=== PATIENT | male | born 1960 | race American Indian/Alaskan Native ===

== ENCOUNTER 2019-11-13 16:32 | Observation (INO) | payer OTHER ==
[2019-11-13] MEDS ORDERED: Sodium Chloride 0.9% 2.5 ML Syringe FLUSH PRN (16:38)
[2019-11-13] MEDS ORDERED: Aspirin 81 MG Tab.Chew PO ONE (16:38)
[2019-11-13] MEDS ORDERED: Sodium Chloride 0.9% 10 ML Syringe FLUSH PRN (16:38)
[2019-11-13] MEDS ORDERED: Sodium Chloride 0.9% 1,000 ML IV ONE (16:39)
[2019-11-13] MEDS ORDERED: Nitroglycerin 2% Oint 1 GM UD Packet TOP ONE (16:39)
--- NOTE | 2019-11-13 16:50 | EDM.PDOC ---
ED HPI GENERAL MEDICAL PROBLEM - General Chief Complaint: Chest Pain Stated Complaint: CHEST PAIN Time Seen by Provider: 11/13/19 16:37 Source of Information: Reports: Patient History Limitations: Reports: No Limitations - History of Present Illness INITIAL COMMENTS - FREE TEXT/NARRATIVE: HISTORY AND PHYSICAL: History of present illness: Patient is a 59-year-old male who presents to the emergency room with complaints of midsternal chest pain x 1 week. Over the past week he has had intermittent chest pain that has been brought on by physical activity. Initially the pain was dull but has progressively become more intense. Last night he was having intercourse when the pain became so severe he had to stop. "It woke me up a few times in the night" but was easily able to get back to sleep. He woke up this morning and started to do daily chores when the chest pain returned. He decided to come for evaluation. He has a history of hypertension and does take medication for this (has already taken today's doses) . Otherwise states he is in good health and has not had any cardiac related problems. He is a daily smoker, long-term. 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 Patient denies any fever, chills, headache, change in vision, syncope or near syncope. Denies any back pain, shortness of breath or cough. Denies any abdominal pain, nausea, vomiting, diarrhea, constipation or dysuria. Patient has been eating and drinking appropriately. Denies any significant family history of heart disease. No recent travel or exposure to anyone who's been ill. Review of systems: As per history of present illness and below otherwise all systems reviewed and negative. Past medical history: As per history of present illness and as reviewed below otherwise noncontributory. Surgical history: As per history of present illness and as reviewed below otherwise noncontributory. Social history: See social history for further information Family history: As per history of present illness and as reviewed below otherwise noncontributory. Physical exam: General: Well-developed and well-nourished 59-year-old male. Alert and oriented. Nontoxic-appearing and in no acute distress. HEENT: Atraumatic, normocephalic, pupils equal and reactive bilaterally, negative for conjunctival pallor or scleral icterus, mucous membranes moist, TMs normal bilaterally, throat clear, neck supple, nontender, trachea midline. No drooling or trismus noted. No meningeal signs. No hot potato voice noted. Lungs: Clear to auscultation, breath sounds equal bilaterally, chest nontender. Heart: S1S2, regular rate and rhythm without overt murmur Abdomen: Soft, nondistended, nontender. Negative for masses or hepatosplenomegaly. Negative for costovertebral tenderness. Skin: Intact, warm, dry. No lesions or rashes noted. Extremities: Atraumatic, moves all extremities per self without difficulty or deficits, negative for cords or calf pain. Neurovascular unremarkable. Neuro: Awake, alert, oriented. Cranial nerves II through XII unremarkable. Cerebellum unremarkable. Motor and sensory unremarkable throughout. Exam nonfocal. Notes: Lab work is unremarkable. Chest x-ray shows no acute findings. Vital signs have improved since being here. He states he has been pain-free. Would like to keep the patient for observation with telemetry. Patient is agreeable. Dr. Sánchez was consulted on this case and agreeable to keeping the patient for further care and management. Diagnostics: CBC, CMP, Troponin, EKG, CXR Therapeutics: Aspirin, Nitro, NS at 125 mls/hr Impression: Chest pain r/o [place] Plan: Observation admission to Med/Surg Definitive disposition and diagnosis as appropriate pending reevaluation and review of above. - Related Data Allergies Allergy/AdvReac Type Severity Reaction Status Date / Time No Known Allergies Allergy Verified 11/13/19 16:35 Home Meds: Home Meds amLODIPine [Norvasc] 11/13/19 [History] atorvaSTATin [Lipitor] 11/13/19 [History] ED ROS GENERAL - Review of Systems Review Of Systems: Comprehensive ROS is negative, except as noted in HPI. ED EXAM, GENERAL - Physical Exam Exam: See Below (See dictation) Course - Vital Signs Last Recorded V/S: Last Vital Signs Temp 98.2 F 11/13/19 16:35 Pulse 87 11/13/19 17:32 Resp 16 11/13/19 17:32 BP 150/72 H 11/13/19 17:32 Pulse Ox 94 L 11/13/19 17:32 - Orders/Labs/Meds Orders: Active Orders 24 hr Category Date Time Status Admission Status [Patient Status] [ADT] Stat ADT 11/13/19 17:33 Active EKG Documentation Completion [RC] STAT Care 11/13/19 16:38 Active Sodium Chloride 0.9% [Normal Saline] 1,000 ml Med 11/13/19 16:39 Active IV STAT Sodium Chloride 0.9% [Saline Flush] Med 11/13/19 16:38 Active 10 ml FLUSH ASDIRECTED PRN Sodium Chloride 0.9% [Saline Flush] Med 11/13/19 16:38 Active 2.5 ml FLUSH ASDIRECTED PRN Saline Lock Insert [OM.PC] Stat Oth 11/13/19 16:38 Ordered Medication Orders Sodium Chloride (Normal Saline) 1,000 mls @ 125 mls/hr IV STAT ONE Stop: 11/14/19 00:38 Last Admin: 11/13/19 16:45 Dose: 125 mls/hr Sodium Chloride (Saline Flush) 10 ml FLUSH ASDIRECTED PRN PRN Reason: Keep Vein Open Last Admin: 11/13/19 16:45 Dose: 10 ml Sodium Chloride (Saline Flush) 2.5 ml FLUSH ASDIRECTED PRN PRN Reason: Keep Vein Open Last Admin: 11/13/19 16:45 Dose: 2.5 ml Labs: Laboratory Tests 11/13/19 11/13/19 Range/Units 16:35 16:35 WBC 11.03 H (4.0-11.0) K/uL RBC 5.90 (4.50-5.90) M/uL Hgb 16.8 (13.0-17.0) g/dL Hct 49.8 (38.0-50.0) % MCV 84.4 (80.0-98.0) fL MCH 28.5 (27.0-32.0) pg MCHC 33.7 (31.0-37.0) g/dL RDW Std Deviation 38.9 (28.0-62.0) fl RDW Coeff of Alin 13 (11.0-15.0) % Plt Count 284 (150-400) K/uL MPV 9.50 (7.40-12.00) fL Neut % (Auto) 49.1 (48.0-80.0) % Lymph % (Auto) 40.9 H (16.0-40.0) % [place] % (Auto) 7.6 (0.0-15.0) % Eos % (Auto) 2.2 (0.0-7.0) % Baso % (Auto) 0.2 (0.0-1.5) % Neut # (Auto) 5.4 (1.4-5.7) K/uL Lymph # (Auto) 4.5 H (0.6-2.4) K/uL [place] # (Auto) 0.8 (0.0-0.8) K/uL Eos # (Auto) 0.2 (0.0-0.7) K/uL Baso # (Auto) 0.0 (0.0-0.1) K/uL Nucleated RBC % 0.0 /100WBC Nucleated RBCs # 0 K/uL Sodium 142 (136-148) mmol/L Potassium 3.5 (3.5-5.1) mmol/L Chloride 104 (98-107) mmol/L Carbon Dioxide 28.4 (21.0-32.0) mmol/L BUN 17 (7.0-18.0) mg/dL Creatinine 1.1 (0.8-1.3) mg/dL Est Cr Clr Drug Dosing 64.44 mL/min Estimated GFR (MDRD) > 60.0 ml/min Glucose 198 H (74-106) mg/dL Calcium 9.4 (8.5-10.1) mg/dL Total Bilirubin 0.3 (0.2-1.0) mg/dL AST 34 (15-37) IU/L ALT 88 H (14-63) IU/L Alkaline Phosphatase 105 (46-116) U/L Troponin I < 0.050 (0.000-0.056) ng/mL Total Protein 7.3 (6.4-8.2) g/dL Albumin 4.0 (3.4-5.0) g/dL Globulin 3.3 (2.6-4.0) g/dL Albumin/Globulin Ratio 1.2 (0.9-1.6) Meds: Medications Generic Name Dose Route Start Last Admin Trade Name Freq PRN Reason Stop Dose Admin Sodium Chloride 1,000 mls @ 125 mls/hr 11/13/19 16:39 11/13/19 16:45 Normal Saline IV 11/14/19 00:38 125 mls/hr STAT ONE Administration Sodium Chloride 10 ml 11/13/19 16:38 11/13/19 16:45 Saline Flush FLUSH 10 ml ASDIRECTED PRN Administration Keep Vein Open Sodium Chloride 2.5 ml 11/13/19 16:38 11/13/19 16:45 Saline Flush FLUSH 2.5 ml ASDIRECTED PRN Administration Keep Vein Open Discontinued Medications Generic Name Dose Route Start Last Admin Trade Name Freq PRN Reason Stop Dose Admin Aspirin 324 mg 11/13/19 16:38 11/13/19 16:44 Aspirin PO 11/13/19 16:39 324 mg ONETIME ONE Administration Nitroglycerin 1 gm 11/13/19 16:39 11/13/19 16:44 Nitro-Bid 2% TOP 11/13/19 16:40 1 gm ONETIME ONE Administration Departure - Departure Time of Disposition: 17:37 Disposition: Refer to Observation Clinical Impression: Chest pain, rule out acute myocardial infarction Forms: ED Department Discharge Sepsis Event Note - Evaluation Sepsis Screening Result: No Definite Risk - Focused Exam Vital Signs: Vital Signs Temp Pulse Resp BP Pulse Ox 11/13/19 17:32 87 16 150/72 H 94 L 11/13/19 16:46 98 20 163/73 H 96 11/13/19 16:35 98.2 F 110 H 18 188/80 H 98 Date Exam was Performed: 11/13/19 Time Exam was Performed: 17:35 - My Orders Last 24 Hours: My Active Orders 11/13/19 16:38 EKG Documentation Completion [RC] STAT Sodium Chloride 0.9% [Saline Flush] 10 ml FLUSH ASDIRECTED PRN Sodium Chloride 0.9% [Saline Flush] 2.5 ml FLUSH ASDIRECTED PRN Saline Lock Insert [OM.PC] Stat 11/13/19 16:39 Sodium Chloride 0.9% [Normal Saline] 1,000 ml IV STAT 11/13/19 17:33 Admission Status [Patient Status] [ADT] Stat - Assessment/Plan Last 24 Hours: My Active Orders 11/13/19 16:38 EKG Documentation Completion [RC] STAT Sodium Chloride 0.9% [Saline Flush] 10 ml FLUSH ASDIRECTED PRN Sodium Chloride 0.9% [Saline Flush] 2.5 ml FLUSH ASDIRECTED PRN Saline Lock Insert [OM.PC] Stat 11/13/19 16:39 Sodium Chloride 0.9% [Normal Saline] 1,000 ml IV STAT 11/13/19 17:33 Admission Status [Patient Status] [ADT] Stat
--- NOTE | 2019-11-13 17:01 | CR ---
Chest: Portable view of the chest was obtained. Comparison: No previous chest imaging. Heart size is normal. Mild tortuosity of the thoracic aorta is seen. Degenerative endplate spurring is scattered within the visualized spine. Lungs show no acute parenchymal change. Impression: 1. Findings as noted above. 2. Nothing acute is appreciated on portable chest x-ray. Diagnostic code #2 Study was dictated in MDT
[2019-11-13 17:26] LABS: BLOOD UREA NITROGEN,BUN 17 mg/dL (7.0-18.0); CARBON DIOXIDE,CO2 28.4 mmol/L (21.0-32.0); CHLORIDE,CL 104 mmol/L (98-107); GLUCOSE RANDOM 198 mg/dL (74-106); POTASSIUM,K 3.5 mmol/L (3.5-5.1); SODIUM,NA 142 mmol/L (136-148)
[2019-11-13] MEDS ORDERED: Acetaminophen 325 MG Tab PO PRN (18:52)
[2019-11-13] MEDS ORDERED: Calcium Carbonate 500 MG Tab.Chew PO PRN (18:52)
[2019-11-13] MEDS ORDERED: Pantoprazole 40 MG in Sodium Chloride 0.9% 10 ML IV ONE (20:00)
[2019-11-13] MEDS ORDERED: hydrOXYzine HCl 25 MG Tab PO SCH (21:30)
--- NOTE | 2019-11-13 21:39 | PCM.HP.2 ---
H&P History of Present Illness - General Date of Service: 11/13/19 Admit Problem/Dx: Admission Diagnosis/Problem Admission Diagnosis/Problem Chest pain, rule out acute myocardial infarction - History of Present Illness Initial Comments - Free Text/Narative: 59 yo male with pmh of hypertension and hyperlipidemia who presents with one week history of chest pain. He describes the pain as an intense burn on the left side of his chest that is nonradiating. He thought it could be heart burn so he has been taking tums. The pain is made worse with exertions such as shoveling snow and sex but is relieved with rest. The pain last for several minutes at a time. In the ED he was noted to have a BP of 188/80 and HR of 110. EKG and intial troponin showed no signs of ischemia he was given nitro paste and ASA which improved his chest pain. Left Chest Pain Score (Numeric/FACES): 1 - Related Data Allergies/Adverse Reactions: Allergies Allergy/AdvReac Type Severity Reaction Status Date / Time No Known Allergies Allergy Verified 11/13/19 18:39 Home Medications: Home Meds amLODIPine [Norvasc] 10 mg PO BEDTIME 11/13/19 [History] atorvaSTATin [Lipitor] 40 mg PO BEDTIME 11/13/19 [History] hydrOXYzine HCL [hydrOXYzine] 50 mg PO BEDTIME 11/13/19 [History] Past Medical History Cardiovascular History: Reports: High Cholesterol, Hypertension Neurological History: Reports: None - Infectious Disease History Infectious Disease History: Reports: Chicken Pox - Past Surgical History Other HEENT Surgeries/Procedures: facial surgery GI Surgical History: Reports: Colonoscopy Other Musculoskeletal Surgeries/Procedures:: back surgery Social & Family History - Family History Family Medical History: Noncontributory - Tobacco Use Smoking Status *Q: Current Every Day Smoker Years of Tobacco use: 2 Packs/Tins Daily: 0.5 - Caffeine Use Caffeine Use: Reports: Coffee, Energy Drinks - Alcohol Use Days Per Week of Alcohol Use: 3 Number of Drinks Per Day: 3 Total Drinks Per Week: 9 - Recreational Drug Use Recreational Drug Use: Yes Drug Use in Last 12 Months: Yes Recreational Drug Type: Reports: Methamphetamine Recreational Drug Use Frequency: Not Used In Over 5 Months H&P Review of Systems - Review of Systems: Review Of Systems: Comprehensive ROS is negative, except as noted in HPI. Exam - Exam Exam: See Below - Vital Signs Vital Signs: Last Vital Signs Temp 36.4 C 11/13/19 19:44 Pulse 87 11/13/19 19:44 Resp 14 11/13/19 19:44 BP 124/73 11/13/19 19:44 Pulse Ox 96 11/13/19 19:44 Weight: 78.925 kg - Exam General: Alert, Oriented HEENT: Mucosa Moist & [place] Neck: Supple Lungs: Clear to Auscultation, Normal Respiratory Effort Cardiovascular: Regular Rate, Regular Rhythm GI/Abdominal Exam: Normal Bowel Sounds, Soft, Non-Tender, No Distention Extremities: Non-Tender, No Pedal Edema Skin: Warm, Dry, Intact - Patient Data Lab Results Last 24 hrs: Laboratory Results - last 24 hr 11/13/19 11/13/19 Range/Units 16:35 16:35 WBC 11.03 H (4.0-11.0) K/uL RBC 5.90 (4.50-5.90) M/uL Hgb 16.8 (13.0-17.0) g/dL Hct 49.8 (38.0-50.0) % MCV 84.4 (80.0-98.0) fL MCH 28.5 (27.0-32.0) pg MCHC 33.7 (31.0-37.0) g/dL RDW Std Deviation 38.9 (28.0-62.0) fl RDW Coeff of Alin 13 (11.0-15.0) % Plt Count 284 (150-400) K/uL MPV 9.50 (7.40-12.00) fL Neut % (Auto) 49.1 (48.0-80.0) % Lymph % (Auto) 40.9 H (16.0-40.0) % [place] % (Auto) 7.6 (0.0-15.0) % Eos % (Auto) 2.2 (0.0-7.0) % Baso % (Auto) 0.2 (0.0-1.5) % Neut # (Auto) 5.4 (1.4-5.7) K/uL Lymph # (Auto) 4.5 H (0.6-2.4) K/uL [place] # (Auto) 0.8 (0.0-0.8) K/uL Eos # (Auto) 0.2 (0.0-0.7) K/uL Baso # (Auto) 0.0 (0.0-0.1) K/uL Nucleated RBC % 0.0 /100WBC Nucleated RBCs # 0 K/uL Sodium 142 (136-148) mmol/L Potassium 3.5 (3.5-5.1) mmol/L Chloride 104 (98-107) mmol/L Carbon Dioxide 28.4 (21.0-32.0) mmol/L BUN 17 (7.0-18.0) mg/dL Creatinine 1.1 (0.8-1.3) mg/dL Est Cr Clr Drug Dosing 64.44 mL/min Estimated GFR (MDRD) > 60.0 ml/min Glucose 198 H (74-106) mg/dL Calcium 9.4 (8.5-10.1) mg/dL Total Bilirubin 0.3 (0.2-1.0) mg/dL AST 34 (15-37) IU/L ALT 88 H (14-63) IU/L Alkaline Phosphatase 105 (46-116) U/L Troponin I < 0.050 (0.000-0.056) ng/mL Total Protein 7.3 (6.4-8.2) g/dL Albumin 4.0 (3.4-5.0) g/dL Globulin 3.3 (2.6-4.0) g/dL Albumin/Globulin Ratio 1.2 (0.9-1.6) Result Diagrams: 11/13/19 16:35 11/13/19 16:35 Sepsis Event Note - Evaluation Sepsis Screening Result: No Definite Risk - Focused Exam Vital Signs: Vital Signs Temp Pulse Resp BP Pulse Ox 11/13/19 19:44 36.4 C 87 14 124/73 96 11/13/19 18:30 36.6 C 82 18 166/82 H 96 11/13/19 18:25 90 16 114/90 100 11/13/19 17:32 87 16 150/72 H 94 L 11/13/19 16:46 98 20 163/73 H 96 11/13/19 16:35 36.8 C 110 H 18 188/80 H 98 Date Exam was Performed: 11/14/19 Time Exam was Performed: 11:28 Problem List Initiated/Reviewed/Updated: Yes Orders Last 24hrs: Active Orders 24 hr Category Date Time Status Admission Status [Patient Status] [ADT] Stat ADT 11/13/19 17:33 Active Accu Check [Blood Glucose Check, Bedside] [] TIDAC Care 11/13/19 21:18 Ordered EKG Documentation Completion [] STAT Care 11/13/19 16:38 Active Telemetry Monitoring [Cardiac Monitoring] [] Q8H Care 11/13/19 17:43 Active Regular Diet [DIET] Diet 11/13/19 Dinner Active GLYCOSYLATED HEMOGLOBIN,HGBA1C [CHEM] Routine Lab 11/13/19 22:30 Ordered TROPONIN I [CHEM] Q6H Lab 11/13/19 22:35 Ordered TROPONIN I [CHEM] Q6H Lab 11/14/19 04:35 Ordered Acetaminophen [Tylenol] Med 11/13/19 18:52 Active 650 mg PO Q6H PRN Calcium Carbonate [Tums] Med 11/13/19 18:52 Active 500 mg PO TID PRN Sodium Chloride 0.9% [Saline Flush] Med 11/13/19 16:38 Active 10 ml FLUSH ASDIRECTED PRN Sodium Chloride 0.9% [Saline Flush] Med 11/13/19 16:38 Active 2.5 ml FLUSH ASDIRECTED PRN amLODIPine [Norvasc] Med 11/14/19 09:00 Ordered 10 mg PO DAILY atorvaSTATin [Lipitor] Med 11/14/19 09:00 Ordered 40 mg PO DAILY hydrOXYzine HCL Med 11/14/19 21:00 Ordered 50 mg PO BEDTIME Saline Lock Insert [OM.PC] Stat Oth 11/13/19 16:38 Ordered Medication Orders Acetaminophen (Tylenol) 650 mg PO Q6H PRN PRN Reason: Pain Amlodipine Besylate (Norvasc) 10 mg PO DAILY GRAYSON Atorvastatin Calcium (Lipitor) 40 mg PO DAILY GRAYSON Calcium Carbonate/Glycine (Tums) 500 mg PO TID PRN PRN Reason: Indigestion Hydroxyzine HCl (Atarax) 50 mg PO BEDTIME GRAYSON Sodium Chloride (Saline Flush) 10 ml FLUSH ASDIRECTED PRN PRN Reason: Keep Vein Open Last Admin: 11/13/19 16:45 Dose: 10 ml Sodium Chloride (Saline Flush) 2.5 ml FLUSH ASDIRECTED PRN PRN Reason: Keep Vein Open Last Admin: 11/13/19 16:45 Dose: 2.5 ml Assessment/Plan Comment:: 59 yo male who presents with chest pain. We will rule out acute coronary syndrome with serial cardiac enzymes and monitor on telemetry overnight.
[2019-11-14] MEDS ORDERED: atorvaSTATin 40 MG Tab PO SCH (09:00)
[2019-11-14] MEDS ORDERED: amLODIPine 5 MG Tab PO SCH (09:00)
--- NOTE | 2019-11-14 09:09 | PCM.DCSUM1 ---
Discharge Summary - Hospital Course Brief History: 59 yo male with pmh of hypertension and hyperlipidemia who presents with one week history of chest pain. He describes the pain as an intense burn on the left side of his chest that is nonradiating. He thought it could be heart burn so he has been taking tums. The pain is made worse with exertions such as shoveling snow and sex but is relieved with rest. The pain last for several minutes at a time. In the ED he was noted to have a BP of 188/ 80 and HR of 110. EKG and intial troponin showed no signs of ischemia he was given nitro paste and ASA which improved his chest pain. Diagnosis: Stroke: No - Discharge Data Discharge Date: 11/14/19 Discharge Disposition: Home, Self-Care 01 Condition: Stable - Referral to Home Health Primary Care Physician: PCP None - Discharge Diagnosis/Problem(s) (1) Chest pain, rule out acute myocardial infarction SNOMED Code(s): 77457642 ICD Code: R07.9 - CHEST PAIN, UNSPECIFIED Status: Acute Current Visit: Yes (2) HTN (hypertension) SNOMED Code(s): 93511960 ICD Code: I10 - ESSENTIAL (PRIMARY) HYPERTENSION Status: Chronic Current Visit: Yes Qualifiers: Hypertension type: essential hypertension Qualified Code(s): I10 - Essential (primary) hypertension (3) HLD (hyperlipidemia) SNOMED Code(s): 17426163 ICD Code: E78.5 - HYPERLIPIDEMIA, UNSPECIFIED Status: Chronic Current Visit: Yes (4) Tobacco abuse SNOMED Code(s): 657319909 ICD Code: Z72.0 - TOBACCO USE Status: Chronic Current Visit: Yes (5) Tobacco abuse counseling SNOMED Code(s): 808648953, 775436617, 652661572 ICD Code: Z71.6 - TOBACCO ABUSE COUNSELING Status: Acute Current Visit: Yes - Patient Summary/Data Hospital Course: Admitting Diagnoses: Chest pain Hypertension Discharge Diagnoses: Chest pain- resolved Hypertension- stable Other pMH Tobacco abuse HLD Micky was admitted secondary to chest pain which worsened with activity. He was given Nitro in the ED, which helped the pain. BP was elevated 180s SBP on admission as well. he admitted to not having BP meds for over 5 days due to unable to get refill, but has the medication now. Troponin negative. EKG showed no signs of acute ischemic changes. Troponins remained negative during stay and BP improved. He will be discharged home today, ACS rule out. Though due to concerns regarding chest pain, NM exercise stress test will be ordered as outpatient. He was counseled on smoking cessation for over 5 minutes. He was counseled on continuing his home medications, including statin, Amlodipine and ASA daily to reduce risk of cardiac event. He verbalized understanding. He is to refrain from strenuous activities including working out until after stress test. he is to return to ED or clinic if chest pain reoccurs. Follow up with PCP as well as Cardiology for stress test. - Patient Instructions Diet: Heart Healthy Diet Activity: No Strenuous Activities (including working out) Activity, Other: quit smoking! Showering/Bathing: May Shower Notify Provider of: Fever, Increased Pain, Swelling and Redness, Drainage, Nausea and/or Vomiting - Discharge Plan *PRESCRIPTION DRUG MONITORING PROGRAM REVIEWED*: Not Applicable *COPY OF PRESCRIPTION DRUG MONITORING REPORT IN PATIENT MAKENZIE: Not Applicable Home Medications: Home Meds amLODIPine [Norvasc] 10 mg PO BEDTIME 11/13/19 [History] atorvaSTATin [Lipitor] 40 mg PO BEDTIME 11/13/19 [History] hydrOXYzine HCL [hydrOXYzine] 50 mg PO BEDTIME 11/13/19 [History] Oxygen Therapy Mode: Room Air Patient Handouts: Exercise Stress Test, [id number], Nonspecific Chest Pain, Adult, [id number] Referrals: [place] Jim Mcgregor [Ordering Only Provider] - 11/21/19 1:00 pm (Arrive 15 minutes early with photo ID and insurance card. ) - Discharge Summary/Plan Comment DC Time >30 min.: No - Patient Data Vitals - Most Recent: Last Vital Signs Temp 97.7 F 11/14/19 08:00 Pulse 73 11/14/19 08:00 Resp 16 11/14/19 08:00 BP 102/60 11/14/19 08:19 Pulse Ox 96 11/14/19 08:00 Weight - Most Recent: 78.925 kg I&O - Last 24 hours: Intake & Output 11/13/19 11/14/19 11/14/19 22:59 06:59 14:59 Intake Total 750 Balance 750 Lab Results - Last 24 hrs: Laboratory Results - last 24 hr 0411/13/19 11/13/19 Range/Units 16:35 16:35 22:42 WBC 11.03 H (4.0-11.0) K/uL RBC 5.90 (4.50-5.90) M/uL Hgb 16.8 (13.0-17.0) g/dL Hct 49.8 (38.0-50.0) % MCV 84.4 (80.0-98.0) fL MCH 28.5 (27.0-32.0) pg MCHC 33.7 (31.0-37.0) g/dL RDW Std Deviation 38.9 (28.0-62.0) fl RDW Coeff of Alin 13 (11.0-15.0) % Plt Count 284 (150-400) K/uL MPV 9.50 (7.40-12.00) fL Neut % (Auto) 49.1 (48.0-80.0) % Lymph % (Auto) 40.9 H (16.0-40.0) % Reynolds % (Auto) 7.6 (0.0-15.0) % Eos % (Auto) 2.2 (0.0-7.0) % Baso % (Auto) 0.2 (0.0-1.5) % Neut # (Auto) 5.4 (1.4-5.7) K/uL Lymph # (Auto) 4.5 H (0.6-2.4) K/uL Reynolds # (Auto) 0.8 (0.0-0.8) K/uL Eos # (Auto) 0.2 (0.0-0.7) K/uL Baso # (Auto) 0.0 (0.0-0.1) K/uL Nucleated RBC % 0.0 /100WBC Nucleated RBCs # 0 K/uL Sodium 142 (136-148) mmol/L Potassium 3.5 (3.5-5.1) mmol/L Chloride 104 (98-107) mmol/L Carbon Dioxide 28.4 (21.0-32.0) mmol/L BUN 17 (7.0-18.0) mg/dL Creatinine 1.1 (0.8-1.3) mg/dL Est Cr Clr Drug Dosing 64.44 mL/min Estimated GFR (MDRD) > 60.0 ml/min Glucose 198 H (74-106) mg/dL POC Glucose (60-110) mg/dL Hemoglobin A1c (4.5-6.2) % Calcium 9.4 (8.5-10.1) mg/dL Total Bilirubin 0.3 (0.2-1.0) mg/dL AST 34 (15-37) IU/L ALT 88 H (14-63) IU/L Alkaline Phosphatase 105 (46-116) U/L Troponin I < 0.050 < 0.050 (0.000-0.056) ng/mL Total Protein 7.3 (6.4-8.2) g/dL Albumin 4.0 (3.4-5.0) g/dL Globulin 3.3 (2.6-4.0) g/dL Albumin/Globulin Ratio 1.2 (0.9-1.6) 11/13/19 11/14/19 11/14/19 Range/Units 22:42 04:34 07:35 WBC (4.0-11.0) K/uL RBC (4.50-5.90) M/uL Hgb (13.0-17.0) g/dL Hct (38.0-50.0) % MCV (80.0-98.0) fL MCH (27.0-32.0) pg MCHC (31.0-37.0) g/dL RDW Std Deviation (28.0-62.0) fl RDW Coeff of Alin (11.0-15.0) % Plt Count (150-400) K/uL MPV (7.40-12.00) fL Neut % (Auto) (48.0-80.0) % Lymph % (Auto) (16.0-40.0) % Reynolds % (Auto) (0.0-15.0) % Eos % (Auto) (0.0-7.0) % Baso % (Auto) (0.0-1.5) % Neut # (Auto) (1.4-5.7) K/uL Lymph # (Auto) (0.6-2.4) K/uL Reynolds # (Auto) (0.0-0.8) K/uL Eos # (Auto) (0.0-0.7) K/uL Baso # (Auto) (0.0-0.1) K/uL Nucleated RBC % /100WBC Nucleated RBCs # K/uL Sodium (136-148) mmol/L Potassium (3.5-5.1) mmol/L Chloride (98-107) mmol/L Carbon Dioxide (21.0-32.0) mmol/L BUN (7.0-18.0) mg/dL Creatinine (0.8-1.3) mg/dL Est Cr Clr Drug Dosing mL/min Estimated GFR (MDRD) ml/min Glucose (74-106) mg/dL POC Glucose 97 (60-110) mg/dL Hemoglobin A1c 6.0 (4.5-6.2) % Calcium (8.5-10.1) mg/dL Total Bilirubin (0.2-1.0) mg/dL AST (15-37) IU/L ALT (14-63) IU/L Alkaline Phosphatase (46-116) U/L Troponin I < 0.050 (0.000-0.056) ng/mL Total Protein (6.4-8.2) g/dL Albumin (3.4-5.0) g/dL Globulin (2.6-4.0) g/dL Albumin/Globulin Ratio (0.9-1.6) Med Orders - Current: Current Medications Acetaminophen (Tylenol) 650 mg PO Q6H PRN PRN Reason: Pain Amlodipine Besylate (Norvasc) 10 mg PO DAILY [facility] Last Admin: 11/14/19 08:19 Dose: 10 mg Atorvastatin Calcium (Lipitor) 40 mg PO DAILY [facility] Last Admin: 11/14/19 08:20 Dose: 40 mg Calcium Carbonate/Glycine (Tums) 500 mg PO TID PRN PRN Reason: Indigestion Hydroxyzine HCl (Atarax) 50 mg PO BEDTIME [facility] Last Admin: 11/13/19 21:41 Dose: 50 mg Sodium Chloride (Saline Flush) 10 ml FLUSH ASDIRECTED PRN PRN Reason: Keep Vein Open Last Admin: 11/13/19 16:45 Dose: 10 ml Sodium Chloride (Saline Flush) 2.5 ml FLUSH ASDIRECTED PRN PRN Reason: Keep Vein Open Last Admin: 11/13/19 16:45 Dose: 2.5 ml Discontinued Medications Aspirin (Aspirin) 324 mg PO ONETIME ONE Stop: 11/13/19 16:39 Last Admin: 11/13/19 16:44 Dose: 324 mg Sodium Chloride (Normal Saline) 1,000 mls @ 125 mls/hr IV STAT ONE Stop: 11/14/19 00:38 Last Admin: 11/13/19 16:45 Dose: 125 mls/hr Pantoprazole Sodium 40 mg/ (Sodium Chloride) 10 mls @ 300 mls/hr IV ONETIME ONE Stop: 11/13/19 20:01 Last Admin: 11/13/19 19:35 Dose: 300 mls/hr Nitroglycerin (Nitro-Bid 2%) 1 gm TOP ONETIME ONE Stop: 11/13/19 16:40 Last Admin: 11/13/19 16:44 Dose: 1 gm - Exam General: Reports: Alert, Oriented, Cooperative, No Acute Distress Lungs: Reports: Clear to Auscultation, Normal Respiratory Effort Cardiovascular: Reports: Regular Rate, Regular Rhythm GI/Abdominal Exam: Normal Bowel Sounds, Soft, Non-Tender Skin: Reports: Warm, Dry Neurological: Reports: No New Focal Deficit Psy/Mental Status: Reports: Alert, Normal Affect, Normal Mood
== END 2019-11-14 09:45 | disposition home or self-care (01) ==
LOC: MW.ED 16:32 → MW.MS 17:33
PROVIDERS: ADMIT Internal Medicine; ATTEND Internal Medicine
DX: R07.2 Precordial pain (principal); I10 Essential (primary) hypertension; E78.5 Hyperlipidemia, unspecified; F17.210 Nicotine dependence, cigarettes, uncomplicated; Z71.6 Tobacco abuse counseling; Z79.899 Other long term (current) drug therapy
CPT/HCPCS: 36415; 71045; 80053; 82962; 83036; 84484; 85025; 93005; 96360; 96361; 99285; A9270; C9113; J7030; J7050; 96374; 99284; G0378

== ENCOUNTER 2022-01-08 11:35 | Emergency (ER) | payer OTHER ==
[2022-01-08] MEDS ORDERED: Acetaminophen/HYDROcodone 325-5 MG Tab PO ONE (12:00)
[2022-01-08] MEDS ORDERED: predniSONE 20 MG Tab PO ONE (12:00)
[2022-01-08 12:30] LABS: BLOOD UREA NITROGEN,BUN 8 mg/dL (7.0-18.0); CARBON DIOXIDE,CO2 25.7 mmol/L (21.0-32.0); CHLORIDE,CL 102 mmol/L (98-107); GLUCOSE RANDOM 125 mg/dL (74-106); POTASSIUM,K 4.1 mmol/L (3.5-5.1); SODIUM,NA 136 mmol/L (136-148)
[2022-01-08 12:31] LABS: ESTIMATED GFR > 60.0 ml/min
== END 2022-01-08 13:35 | disposition home or self-care (01) ==
LOC: MW.ED 11:35
DX: S49.92XA Unspecified injury of left shoulder and upper arm, initial encounter (principal); M19.012 Primary osteoarthritis, left shoulder; R74.01 Elevation of levels of liver transaminase levels; E78.00 Pure hypercholesterolemia, unspecified; I10 Essential (primary) hypertension; Z79.899 Other long term (current) drug therapy; W17.89XA Other fall from one level to another, initial encounter
CPT/HCPCS: 36415; 71045; 73030; 80053; 84484; 85025; 93005; 99284; A9270; 99283

== ENCOUNTER 2022-01-09 15:37 | Emergency (ER) | payer OTHER ==
[2022-01-09] MEDS ORDERED: HYDROmorphone 1 MG/ML Syringe IVPUSH ONE (17:34)
[2022-01-09] MEDS ORDERED: Sodium Chloride 0.9% 2.5 ML Syringe FLUSH PRN (17:34)
[2022-01-09] MEDS ORDERED: Ondansetron 4 MG/2 ML SDV IVPUSH ONE (17:34)
[2022-01-09] MEDS ORDERED: Sodium Chloride 0.9% 10 ML Syringe FLUSH PRN (17:34)
[2022-01-09 18:32] LABS: BLOOD UREA NITROGEN,BUN 13 mg/dL (7.0-18.0); CARBON DIOXIDE,CO2 26.9 mmol/L (21.0-32.0); CHLORIDE,CL 101 mmol/L (98-107); GLUCOSE RANDOM 138 mg/dL (74-106); SODIUM,NA 136 mmol/L (136-148)
[2022-01-09 18:37] LABS: ESTIMATED GFR > 60.0 ml/min
== END 2022-01-09 18:45 | disposition home or self-care (01) ==
LOC: MW.ED 15:37
DX: S49.92XA Unspecified injury of left shoulder and upper arm, initial encounter (principal); E78.00 Pure hypercholesterolemia, unspecified; I10 Essential (primary) hypertension; Z79.899 Other long term (current) drug therapy; W18.30XA Fall on same level, unspecified, initial encounter
CPT/HCPCS: 36415; 73200; 80053; 85025; 93005; 96374; 96375; 99284; J1170; J2405; 93010

== ENCOUNTER 2022-01-14 04:29 | Emergency (ER) | payer OTHER ==
[2022-01-14] MEDS ORDERED: Magnesium Citrate Solution 296 ML Bottle PO STA (04:48)
[2022-01-14] MEDS ORDERED: Gabapentin 300 MG Cap PO ONE (04:48)
== END 2022-01-14 05:13 | disposition home or self-care (01) ==
LOC: MW.ED 04:29
DX: K59.00 Constipation, unspecified (principal); T40.2X5A Adverse effect of other opioids, initial encounter; S39.012A Strain of muscle, fascia and tendon of lower back, initial encounter; I10 Essential (primary) hypertension; W19.XXXA Unspecified fall, initial encounter
CPT/HCPCS: 51798; 99283; A9270

== ENCOUNTER 2022-10-14 01:47 | Emergency (ER) | payer SELFPAY | END 2022-10-14 02:52 | LOC: MW.ED 01:47 | DX: Z02.89 Encounter for other administrative examinations (principal); E78.00 Pure hypercholesterolemia, unspecified; I10 Essential (primary) hypertension; Z79.899 Other long term (current) drug therapy | CPT/HCPCS: 82947; 99283 ==

== ENCOUNTER 2023-12-14 13:59 | Emergency (ER) | payer SELFPAY | END 2023-12-14 16:21 | disposition left against medical advice (07) | LOC: MW.ED 13:59 | DX: M79.605 Pain in left leg (principal); I10 Essential (primary) hypertension; E78.00 Pure hypercholesterolemia, unspecified; F17.210 Nicotine dependence, cigarettes, uncomplicated; Z79.899 Other long term (current) drug therapy; Z75.8 Other problems related to medical facilities and other health care | CPT/HCPCS: 73502-26-LT; 73502-LT; 73552-26-LT; 73552-LT; 73562-26-LT; 73562-LT; 93971-26-LT; 93971-LT; 99283; 99284 ==